=== PATIENT | female | born 1960 | race Caucasian/White ===

== ENCOUNTER 2022-02-12 17:54 | Outpatient (CLI) | payer MEDICAID ==
[2022-02-12 20:51] LABS: BASOPHILS # (AUTO) 0.1 10^3/uL (0.0-0.1); BASOPHILS % (AUTO) 0.9 %; EOSINOPHILS # (AUTO) 0.2 10^3/uL (0.0-0.7); EOSINOPHILS % (AUTO) 2.9 %; HCT - HEMATOCRIT 40.5 % (37.0-47.0); HGB - HEMOGLOBIN 12.7 g/dL (12.0-16.0); LYMPHOCYTES # (AUTO) 1.7 10^3/uL (1.5-3.5); LYMPHOCYTES % (AUTO) 24.1 %; MEAN CORPUSCULAR HGB CONC 31.4 g/dL (32.0-36.0); MEAN CORPUSCULAR VOLUME 95.5 fL (81.0-99.0); MEAN PLATELET VOLUME 10.9 fL (7.9-10.8); MONOCYTES # (AUTO) 0.6 10^3/uL (0.0-1.0); NEUTROPHILS # (AUTO) 4.5 10^3/uL (1.5-6.6); NEUTROPHILS % (AUTO) 63.8 %; PLT - PLATELET COUNT 297 10^3/uL (130-450); RED BLOOD COUNT 4.24 10^6/uL (4.20-5.40); RED CELL DISTRIBUTION WIDTH 14.3 % (12.0-15.0)
[2022-02-12 21:06] LABS: ALBUMIN 4.2 g/dL (3.2-5.5); ALBUMIN/GLOBULIN RATIO 1.3 (1.0-2.2); ALKALINE PHOSPHATASE 67 IU/L (42-121); ALT ALANINE AMINOTRANSFERASE 15 IU/L (10-60); AST ASPARTATE AMINOTRANSFERASE 19 IU/L (10-42); BILIRUBIN,TOTAL 0.5 mg/dL (0.2-1.0); BUN - BLOOD UREA NITROGEN 16 mg/dL (6-20); CALCIUM 9.3 mg/dL (8.5-10.3); CARBON DIOXIDE - CO2 29 mmol/L (21-32); CHLORIDE 104 mmol/L (101-111); CHOL/HDL RATIO 4.7 (<4.4); CHOLESTEROL 235 mg/dL; CREATININE 0.7 mg/dL (0.4-1.0); GFR - MDRD 85 (>89); GLUCOSE 72 mg/dL (70-100); HDL CHOLESTEROL 50 mg/dL; LDL CHOLESTEROL,CALCULATED 164 mg/dL; LDL/HDL RATIO 3.3 (<4.4); POTASSIUM 3.9 mmol/L (3.5-5.0); SODIUM 139 mmol/L (135-145); TOTAL PROTEIN 7.5 g/dL (6.7-8.2); TRIGLYCERIDES 103 mg/dL; VLDL CHOLESTEROL 21 mg/dL
[2022-02-12 21:17] LABS: THYROID STIMULATING HORMONE 7.5 uIU/mL (0.34-5.60)
[2022-02-12 21:56] LABS: FREE T4 (FREE THYROXINE) 0.64 ng/dL (0.58-1.64)
== END 2022-02-12 17:55 | disposition home or self-care (01) ==
LOC: LAB.N 17:54
PROVIDERS: ATTEND Nurse Practitioner Family
DX: Z00.00 Encounter for general adult medical examination without abnormal findings (principal)
CPT/HCPCS: 36415; 80053; 80061; 83721; 84439; 84443; 85025

== ENCOUNTER 2022-09-03 14:45 | Outpatient (CLI) | payer MEDICAID ==
--- NOTE | 2022-09-03 16:46 | XRAY Report ---
PROCEDURE: Shoulder 3 View BILAT INDICATIONS: BILAT SHOULDER PAIN TECHNIQUE: 3 views of the bilateral shoulders were acquired. COMPARISON: None. FINDINGS: Bones: No fractures or dislocations. No suspicious bony lesions. Visualized ribs appear intact. M ild degenerative change with bilateral AC joint hypertrophy noted. Soft tissues: No suspicious soft tissue calcifications. IMPRESSION: Mild degenerative change. No evidence acute bony abnormality of the bilateral shoulders. If clinical suspicion and/or symptoms persist, further assessment with repeat plain films or advanced imaging (e.g., CT, MRI, or bone scan) may be helpful for further assessment. Reviewed by: Rafa Colorado MD on 09/03/2022 4:44 PM PST Approved by: Rafa Colorado MD on 09/03/2022 4:44 PM PST Station ID: [id number]
== END 2022-09-03 14:46 | disposition home or self-care (01) ==
LOC: DI.WOS 14:45
PROVIDERS: ATTEND Physician Assistant Surgical
DX: M19.012 Primary osteoarthritis, left shoulder (principal); M19.011 Primary osteoarthritis, right shoulder

== ENCOUNTER 2022-11-01 19:06 | Emergency (ER) | payer MEDICAID ==
[2022-11-01 19:20] VITALS: BP 135/87
--- NOTE | 2022-11-01 21:55 | ED Physician Documentation ---
PD HPI LOWER EXT INJURY - Stated complaint Stated Complaint: FELL/R KNEE PX - Chief complaint Chief Complaint: Trauma Ext - History obtained from History obtained from: Patient, Family - History of Present Illness PD HPI LOW EXT INJURY LOCATION: Right, Knee Type of injury: Fall Where injury occurred: Home Timing - onset: Today Timing - duration: Hours Timing - details: Abrupt onset, Still present Improved by: Rest, Ice, Immobilization Worsened by: Moving, Palpating Associated symptoms: Numbness (foot), Tingling (foot). No: Weakness Contributing factors: No: Anticoagulated Similar symptoms before: Diagnosis (fracture, contusion, sprain) Recently seen: Not recently seen - Additional information Additional information: 62-year-old female with a prior history of orthopedic injuries was in her new apartment today. When she went outside with her sister she tripped forward off of a small porch less than 1 step and she fell onto her right knee and onto her outstretched left hand. She complains of pain to her hand and wrist as well as pain to her right knee and pain and numbness to her right foot. She used a walker to come into the emergency department. She is accompanied today by her sister. Review of Systems Constitutional: denies: Fever Ears: denies: Ear pain Nose: denies: Congestion Throat: denies: Sore throat Respiratory: denies: Cough GI: denies: Vomiting, Diarrhea PD PAST MEDICAL HISTORY - Present Medications Home Medications: Ambulatory Orders Medication Instructions Recorded Confirmed Meloxicam [Mobic] 7.5 mg PO BID 10 Days #20 tablet 11/01/22 - Allergies Allergies/Adverse Reactions: Allergies Allergy/AdvReac Type Severity Reaction Status Date / Time acetaminophen Allergy Unknown Verified 11/01/22 19:21 PD ED PE NORMAL - Vitals Vital signs reviewed: Yes (hypretnsive mild ) - General General: Alert and oriented X 3, No acute distress, Well developed/nourished - HEENT HEENT: Atraumatic, PERRL, EOMI - Neck Neck: Supple, no meningeal sign, No bony TTP - Respiratory Respiratory: No respiratory distress - Derm Derm: Normal color, Warm and dry, No rash - Extremities Extremities: No deformity, No edema, Other (Abrasion and ecchymosis to the right patella, no swelling, the ligaments stable no evidence of effusion, fair range of motion. Foot: tenderness to the dorsum is mild. ROM to the ankle is normal no significant swelling. Wrist L: No tenderness to the anatomic snuffbox pain over the dorsum normal ROM) Results - Vitals Vitals: Vital Signs - 24 hr 11/01/22 19:07 Temperature 36.2 C L Heart Rate 83 Respiratory 18 Rate Blood Pressure 135/87 H O2 Saturation 100 Oxygen O2 Source Room air - Rads (name of study) left wrist Relevant Findings:: Prelim report reviewed (Impression: No acute fracture or dislocation. ), EMP independent interpretation of test PD Medical Decision Making - ED course ED course: 62-year-old female with a fall has complains of pain to her knee foot and wrist. On examination she has good range of motion to each of these areas no significant swelling there is abrasion to the right patella there is no evidence of fracture on x-rays of the knee wrist and foot. The patient's abrasion is cleansed she is placed into a Velcro wrist splint she is given 30 mg of Toradol IM and we have supplied her with a walker. Departure - Departure Disposition: 01 Home, Self Care Clinical Impression: Contusion of right knee Qualifiers: Encounter type: initial encounter Qualified Code(s): S80.01XA - Contusion of right knee, initial encounter Sprain of right foot Qualifiers: Encounter type: initial encounter Qualified Code(s): S93.601A - Unspecified sprain of right foot, initial encounter Sprain of left wrist Qualifiers: Encounter type: initial encounter Qualified Code(s): S63.502A - Unspecified sprain of left wrist, initial encounter Condition: Stable Instructions: ED Sprain Foot, ED Sprain Knee, ED Sprain Wrist Follow-Up: Shara Carlson ARNP [Primary Care Provider] - Prescriptions: Meloxicam [Mobic] 7.5 mg PO BID 10 Days #20 tablet Comments: Saskia today looks like you have sprained your knee and your foot as well as your left wrist. Our expectations is that will take about 10 to 14 days for you to recover. We are not expecting chronic problems associated with this. No evidence of fracture on your x-rays. I have E scribed some meloxicam to the [facility] in [place]
[2022-11-01] MEDS ORDERED: KETOROLAC 30 MG/ML VIAL IM STA (22:01)
--- NOTE | 2022-11-01 22:05 | XRAY Report ---
PROCEDURE: Wrist 4 View LT INDICATIONS: FOOSH TECHNIQUE: 4 views of the wrist were acquired. COMPARISON: None. FINDINGS: Bones: No acute fractures or dislocations. There are postsurgical changes of the fifth metacarpal s tatus post prior ORIF of an old fracture. No suspicious bony lesions. Scaphoid view: The scaphoid appears intact. Soft tissues: No suspicious soft tissue calcifications. IMPRESSION: 1. No acute fracture or dislocation. Reviewed by: Chris Lockwood MD on 11/01/2022 10:04 PM PDT Approved by: Chris Lockwood MD on 11/01/2022 10:04 PM PDT Station ID: [id number]
--- NOTE | 2022-11-01 22:35 | XRAY Report ---
PROCEDURE: Knee 4 View RT INDICATIONS: fall contusion TECHNIQUE: 4 views of the right knee were acquired. COMPARISON: None. FINDINGS: Bones: No fractures or dislocations. No suspicious bony lesions. Soft tissues: No joint effusion. No suspicious soft tissue calcifications. IMPRESSION: 1. No fracture or dislocation. Reviewed by: Chris Lockwood MD on 11/01/2022 10:34 PM PDT Approved by: Chris Lockwood MD on 11/01/2022 10:34 PM PDT Station ID: [id number]
--- NOTE | 2022-11-01 22:35 | XRAY Report ---
PROCEDURE: Foot 3 View RT INDICATIONS: fall foot pain TECHNIQUE: 3 views of the foot were acquired. COMPARISON: None. FINDINGS: Bones: No fractures or dislocations. No suspicious bony lesions. Soft tissues: No tibiotalar joint effusion. Achilles tendon appears normal. IMPRESSION: 1. No fracture or dislocation. Reviewed by: Chris Lockwood MD on 11/01/2022 10:33 PM PDT Approved by: Chris Lockwood MD on 11/01/2022 10:33 PM PDT Station ID: [id number]
== END 2022-11-01 22:32 | disposition home or self-care (01) ==
LOC: ED 19:06
DX: S80.01XA Contusion of right knee, initial encounter (principal); S93.601A Unspecified sprain of right foot, initial encounter; S63.502A Unspecified sprain of left wrist, initial encounter; W01.0XXA Fall on same level from slipping, tripping and stumbling without subsequent striking against object, initial encounter; Y92.039 Unspecified place in apartment as the place of occurrence of the external cause
CPT/HCPCS: 96372; 99283

== ENCOUNTER 2022-12-12 15:17 | Outpatient (CLI) | payer MEDICAID ==
[2022-12-12 17:45] LABS: ALBUMIN 4.3 g/dL (3.2-5.5); ALBUMIN/GLOBULIN RATIO 1.2 (1.0-2.2); BILIRUBIN,TOTAL 0.5 mg/dL (0.2-1.0); CALCIUM 9.4 mg/dL (8.5-10.3); CREATININE 0.7 mg/dL (0.4-1.0); POTASSIUM 3.8 mmol/L (3.5-5.0); TOTAL PROTEIN 7.9 g/dL (6.7-8.2)
[2022-12-12 18:04] LABS: BASOPHILS # (AUTO) 0.1 10^3/uL (0.0-0.1); BASOPHILS % (AUTO) 1.2 %; EOSINOPHILS # (AUTO) 0.2 10^3/uL (0.0-0.7); EOSINOPHILS % (AUTO) 2.7 %; HCT - HEMATOCRIT 40.6 % (37.0-47.0); HGB - HEMOGLOBIN 13.2 g/dL (12.0-16.0); LYMPHOCYTES # (AUTO) 1.9 10^3/uL (1.5-3.5); LYMPHOCYTES % (AUTO) 31.2 %; MEAN CORPUSCULAR HEMOGLOBIN 30.5 pg (27.0-31.0); MEAN CORPUSCULAR HGB CONC 32.5 g/dL (32.0-36.0); MEAN CORPUSCULAR VOLUME 93.8 fL (81.0-99.0); MEAN PLATELET VOLUME 11.2 fL (7.9-10.8); MONOCYTES # (AUTO) 0.4 10^3/uL (0.0-1.0); MONOCYTES % (AUTO) 7.2 %; NEUTROPHILS # (AUTO) 3.5 10^3/uL (1.5-6.6); NEUTROPHILS % (AUTO) 57.5 %; PLT - PLATELET COUNT 282 10^3/uL (130-450); RED BLOOD COUNT 4.33 10^6/uL (4.20-5.40); RED CELL DISTRIBUTION WIDTH 14.1 % (12.0-15.0)
[2022-12-12 18:05] LABS: THYROID STIMULATING HORMONE 4.05 uIU/mL (0.34-5.60)
== END 2022-12-12 15:18 | disposition home or self-care (01) ==
LOC: LAB.N 15:17
PROVIDERS: ATTEND Nurse Practitioner Family
DX: E03.8 Other specified hypothyroidism (principal); R11.0 Nausea; R42 Dizziness and giddiness
CPT/HCPCS: 36415; 80053; 84443; 85025

== ENCOUNTER 2023-02-15 15:14 | Outpatient (CLI) | payer MEDICAID ==
--- NOTE | 2023-02-15 21:25 | Ultrasound Report ---
PROCEDURE: Carotid Doppler Complete INDICATIONS: DIZZINESS TECHNIQUE: Color and pulse Doppler interrogation was performed of both carotid systems, with image documentation and velocity measurements. COMPARISON: None. FINDINGS: Right side: Brachial blood pressure: 137/85 mm Hg. Common carotid artery peak systolic velocity: 73 cm/sec. Internal carotid artery peak systolic velocity: 124 cm/sec. Internal carotid artery end diastolic velocity: 57 cm/sec. External carotid artery peak systolic velocity: 146 cm/sec. ICA/CCA peak systolic ratio: 1.7 . Tafoya scale imaging description: Less than 50% stenosis. Percent internal carotid artery stenosis: Minimal plaque is noted in the distal CCA and proximal ICA . Vertebral artery: Flow direction is antegrade. Left side: Brachial blood pressure: 152/93 mm Hg. Common carotid artery peak systolic velocity: 90 cm/sec. Internal carotid artery peak systolic velocity: 91 cm/sec. Internal carotid artery end diastolic velocity: 45 cm/sec. External carotid artery peak systolic velocity: 97 cm/sec. ICA/CCA peak systolic ratio: 1.0 . Tafoya scale imaging description: Minimal plaque is noted in the distal CCA and proximal ECA Percent internal carotid artery stenosis: Less than 50% stenosis.. Vertebral artery: Flow direction is antegrade. IMPRESSION: 1. In the right internal carotid artery, there is no hemodynamically significant stenosis based on pe ak systolic velocity criteria. 2. In the left internal carotid artery, there is no hemodynamically significant stenosis based on pea k systolic velocity criteria. 3. Antegrade blood flow within the right vertebral artery. 4. Antegrade blood flow within the left vertebral artery. The estimate of stenosis included in the report of the imaging study was calculated using the [facility]-end orsed standards of carotid artery stenosis. Reviewed by: Anselmo Olson on 02/15/2023 8:24 PM EMI Approved by: Anselmo Olson on 02/15/2023 8:24 PM [place] Station ID: [id number]
== END 2023-02-15 15:15 | disposition home or self-care (01) ==
LOC: DI 15:14
PROVIDERS: ATTEND Nurse Practitioner Family
DX: R42 Dizziness and giddiness (principal)
CPT/HCPCS: 93880

== ENCOUNTER 2023-05-20 19:25 | Outpatient (CLI) | payer MEDICAID ==
--- NOTE | 2023-05-21 19:24 | XRAY Report ---
PROCEDURE: Shoulder 3 View RT INDICATIONS: PAIN IN RIGHT SHOULDER TECHNIQUE: 3 views of the shoulder were acquired. COMPARISON: None FINDINGS: Bones: No fractures or dislocations. No suspicious bony lesions. Visualized ribs appear intact. Soft tissues: No suspicious soft tissue calcifications. IMPRESSION: Unremarkable shoulder radiographs Reviewed by: Luis Feliz MD on 05/21/2023 6:23 PM AKDT Approved by: Luis Feliz MD on 05/21/2023 6:23 PM AKDT Station ID: [id number]
== END 2023-05-20 19:26 | disposition home or self-care (01) ==
LOC: DI 19:25
PROVIDERS: ATTEND Nurse Practitioner
DX: M25.511 Pain in right shoulder (principal)

== ENCOUNTER 2023-07-14 09:33 | Outpatient (CLI) | payer MEDICAID ==
--- NOTE | 2023-07-14 15:02 | MRI Report ---
PROCEDURE: SHOULDER WO - RT INDICATIONS: ROTATOR CUFF SYNDROME TECHNIQUE: Noncontrast oblique coronal T2 fast spin echo with fat saturation, oblique sagittal T1 spin echo and T2 fast spin echo with fat saturation, axial T1 spin echo and T2 fast spin echo with fat saturation t hrough the shoulder. COMPARISON: Right shoulder radiograph dated 05/20/2023. FINDINGS: Image quality: Excellent. Rotator cuff: There is full-thickness rupture involving most anterior fibers of distal supraspinatus at its insertion on humeral head with up to 2.8 cm medial retraction of torn tendon fibers to the lev el of acromium. Moderate grade articular surface partial-thickness tear involving mid to posterior fi bers of distal supraspinatus and infraspinatus at its insertion on humeral head extending to musculot endinous junction. Distal subscapularis tendinosis is seen. Moderate supraspinatus muscle atrophy is seen on sagittal images. Bones and bursae: There is no acute fracture or dislocation. Moderate acromioclavicular joint and gle nohumeral joint osteoarthritic changes are noted. There is moderate glenohumeral joint effusion and m oderate amount of subacromial subdeltoid bursal fluid. No gross intra-articular loose bodies. Capsule and soft tissues: Subtle fraying of superior anterior labrum at 12 to 1:00 position is noted concerning for subtle superior anterior labral tear. The long head of the biceps tendon appears thick ened. The rotator interval appears normal, without fibrosis. The coracohumeral ligament is normal in thickness. IMPRESSION: 1. Full-thickness rupture involving most anterior fibers of distal supraspinatus with up to 2.8 cm me dial retraction of torn tendon fibers to the level of acromion. Moderate grade articular surface part ial-thickness tear involving rest of the supraspinatus and distal infraspinatus tendons extending to musculotendinous junction. Distal subscapularis tendinosis. Moderate supraspinatus muscle atrophy. 2. Moderate acromioclavicular joint and glenohumeral joint osteoarthritis. No fracture or dislocation . Moderate joint effusion and subacromial subdeltoid bursal fluid. No gross loose bodies. 3. Finding may indicate subtle superior anterior labral tear at 12 to 1:00 position. 4. Proximal long head of biceps tendinosis. Reviewed by: Arvin Mon MD on 07/14/2023 3:01 PM PST Approved by: Arvin Mon MD on 07/14/2023 3:01 PM PST Station ID: [id number]
== END 2023-07-14 09:34 | disposition home or self-care (01) ==
LOC: DI 09:33
PROVIDERS: ATTEND Physician Assistant Surgical
DX: S46.011A Strain of muscle(s) and tendon(s) of the rotator cuff of right shoulder, initial encounter (principal); M62.511 Muscle wasting and atrophy, not elsewhere classified, right shoulder; M19.011 Primary osteoarthritis, right shoulder; M75.81 Other shoulder lesions, right shoulder

== ENCOUNTER 2023-07-26 17:41 | Emergency (ER) | payer MEDICAID ==
--- NOTE | 2023-07-26 17:56 | ED Physician Documentation ---
PD HPI UPPER EXT INJURY - Stated complaint Stated Complaint: RT HAND PX - Chief complaint Chief Complaint: Ext Problem - History obtained from History obtained from: Patient (2 nights ago while "burping" a jar of [place] sauce she developed pain in the palm of her right hand which has been persistent since.) - History of Present Illness Location: Right PD PAST MEDICAL HISTORY - Past Medical History Past Medical History: No - Past Surgical History Past Surgical History: No - Present Medications Home Medications: Ambulatory Orders Medication Instructions Recorded Confirmed Meloxicam [Mobic] 7.5 mg PO BID 10 Days #20 tablet 11/01/22 - Allergies Allergies/Adverse Reactions: Allergies Allergy/AdvReac Type Severity Reaction Status Date / Time acetaminophen Allergy Unknown Verified 07/26/23 17:44 - Social History Does the pt smoke?: No Smoking Status: Never smoker Does the pt drink ETOH?: No Does the pt have substance abuse?: No - Immunizations Immunizations are current?: Yes - POLST Patient has POLST: No PD ED PE NORMAL - Vitals Vital signs reviewed: Yes - General General: Alert and oriented X 3, No acute distress - Extremities Extremities: Other (Mild tenderness sort of in the mid palm distal to the median nerve canal. No dorsal tenderness.) - Neuro Neuro: Alert and oriented X 3 Results - Vitals Vitals: Vital Signs - 24 hr 07/26/23 17:44 Temperature 36.5 C Heart Rate 73 Respiratory 16 Rate Blood Pressure 150/80 H O2 Saturation 96 Oxygen O2 Source Room air - Rads (name of study) Three-view x-ray right hand negative for fracture Relevant Findings:: Final report received, EMP independent interpretation of test PD Medical Decision Making - ED course ED course: She presents with a right pulm injury from "burping" a jar of [place]a sauce a few nights ago. No dorsal tenderness. X-rays negative. Placed in Velcro wrist splint and she needed something for pain. States allergy to acetaminophen is simply stomach upset and has done okay with [place] in the past and given a prepack for 4. Departure - Departure Disposition: 01 Home, Self Care Clinical Impression: Contusion of right hand Qualifiers: Encounter type: initial encounter Qualified Code(s): S60.221A - Contusion of right hand, initial encounter Condition: Good Record reviewed to determine appropriate education?: Yes Instructions: ED Contusion Soft Tissue Follow-Up: [facility] [Provider Group] Comments: You can wear the splint for comfort but do not have to be wearing it all the time. Follow-up with one of our orthopedists in a week or 2 if not improved, the number is on this form. Return for new or worsening symptoms. Forms: PCP List
--- NOTE | 2023-07-26 18:27 | XRAY Report ---
PROCEDURE: Hand 3 View RT INDICATIONS: hand pain TECHNIQUE: 3 views of the hand(s) acquired. COMPARISON: None. FINDINGS: Bones: No fractures or dislocations. No suspicious bony lesions. Mild degenerative changes are seen . Soft tissues: No suspicious soft tissue calcifications or masses. No radiopaque foreign bodies are seen. IMPRESSION: Plain film study within normal limits for age. Reviewed by: Mic Card MD on 07/26/2023 5:25 PM [place] Approved by: Mic Card MD on 07/26/2023 5:25 PM [facility] Station ID: [id number]
[2023-07-26] MEDS ORDERED: HYDROcod/ACET 5/325 Prepack 4 PO STA (18:36)
[2023-07-26 18:58] VITALS: BP 120/93; O2SAT 98
== END 2023-07-26 18:54 | disposition home or self-care (01) ==
LOC: ED 17:41
DX: S60.221A Contusion of right hand, initial encounter (principal); X50.1XXA Overexertion from prolonged static or awkward postures, initial encounter; Y93.89 Activity, other specified
CPT/HCPCS: 99283

== ENCOUNTER 2023-08-23 11:33 | Emergency (ER) | payer MEDICAID ==
[2023-08-23 11:55] VITALS: BP 118/95; O2SAT 96
--- NOTE | 2023-08-23 12:26 | XRAY Report ---
PROCEDURE: Elbow 3+V LT INDICATIONS: Trauma TECHNIQUE: 3 views of the elbow were acquired. COMPARISON: None. FINDINGS: Bones: No fractures or dislocations. No suspicious bony lesions. Soft tissues: Large effusion. No suspicious soft tissue calcifications or masses. IMPRESSION: Large effusion without fracture identified. Reviewed by: Shay Thrasher MD on 08/23/2023 11:24 AM [facility] Approved by: Shay Thrasher MD on 08/23/2023 11:24 AM [facility] Station ID: [id number]
--- NOTE | 2023-08-23 12:51 | ED Physician Documentation ---
PD HPI UPPER EXT INJURY - Stated complaint Stated Complaint: LT ELBOW PX/HOT - Chief complaint Chief Complaint: Ext Problem - History obtained from History obtained from: Patient - Additonal information Additional information: 61-year-old female presents for left elbow pain and swelling. Patient states that 2 days ago she banged her elbow while moving around. She can still move the elbow, but there was a red swollen area and she became concerned so presented today for evaluation. Denies numbness, weakness, tingling, any other complaints Review of Systems Constitutional: denies: Fever, Chills GI: denies: Abdominal Pain, Nausea, Vomiting : denies: Dysuria, Frequency, Hesitancy Musculoskeletal: reports: Joint pain, Joint swelling. denies: Neck pain, Back pain, Extremity pain PD PAST MEDICAL HISTORY - Past Medical History Past Medical History: Yes - Past Surgical History Past Surgical History: No - Present Medications Home Medications: Ambulatory Orders Medication Instructions Recorded Confirmed Meloxicam [Mobic] 7.5 mg PO BID 10 Days #20 tablet 11/01/22 - Allergies Allergies/Adverse Reactions: Allergies Allergy/AdvReac Type Severity Reaction Status Date / Time acetaminophen Allergy Unknown Verified 08/23/23 11:51 - Social History Does the pt smoke?: No Smoking Status: Never smoker Does the pt drink ETOH?: No Does the pt have substance abuse?: No - Immunizations Immunizations are current?: Yes - POLST Patient has POLST: No PD ED PE NORMAL - Vitals Vital signs reviewed: Yes - General General: Alert and oriented X 3, No acute distress, Well developed/nourished - Cardiac Cardiac: RRR, Strong equal pulses - Respiratory Respiratory: No respiratory distress, Clear bilaterally - Derm Derm: Warm and dry, No rash, Other (small area of erythema lateral L elbow) - Extremities Extremities: No deformity, Normal ROM s pain, Other (small area of erythema Lateral L elbow) - Neuro Neuro: Alert and oriented X 3, [employer] architect 2-12 intact, No motor deficit, Normal speech - Psych Psych: Normal mood, Normal affect Results - Vitals Vitals: Vital Signs - 24 hr 08/23/23 11:48 Temperature 36.2 C L Heart Rate 100 Respiratory 20 Rate Blood Pressure 118/95 H O2 Saturation 96 Oxygen O2 Source Room air PD Medical Decision Making - ED course Complexity details: reviewed results, re-evaluated patient, considered differential, d/w patient ED course: Left elbow pain. No obvious deformity, full range of motion. X-rays negative for acute findings. Patient placed in veda wrap and given sling for comfort. RICE therapy advised. Departure - Departure Disposition: Home, Self Care Condition: Stable Instructions: ED Contusion Upper Ext Forms: PCP List Discharge Date/Time: 08/23/23 13:08
== END 2023-08-23 13:08 | disposition home or self-care (01) ==
LOC: ED 11:33
DX: M25.522 Pain in left elbow (principal)
CPT/HCPCS: 99283